=== PATIENT | female | born 1950 | race Caucasian/White ===

== ENCOUNTER 2020-09-23 10:15 | Emergency (ER) | payer MEDICARE, OTHER ==
[2020-09-23 10:27] VITALS: TEMP 99
[2020-09-23] MEDS ORDERED: SODIUM CHLORIDE 0.9% 1,000 ML IV STA (10:54)
[2020-09-23] MEDS ORDERED: IPRATROPIUM-ALBUTEROL 3 ML NEB INHALATION STA ×2 (10:55)
[2020-09-23] MEDS ORDERED: LORazepam 2 MG/ML INJ IV STA (10:55)
[2020-09-23] MEDS ORDERED: methylPREDNISolone SOD SUCCI 125 MG/2 ML VIAL IV STA (10:56)
[2020-09-23 11:17] LABS: Basophils # (A) 0.1 k/uL (0-0.2); Basophils % (A) 1 %; Eosinophils # (A) 0.1 k/uL (0-0.7); Eosinophils % (A) 1 %; HCT 28.2 % (34.0-46.0); HGB 8.6 gm/dL (11.4-16.0); Hypochromasia Moderate; Lymphocytes % (A) 8 %; MCH 28.5 pg (25.0-35.0); MCHC 30.6 g/dL (31.0-37.0); MCV 93.3 fL (80.0-100.0); Monocytes # (A) 0.5 k/uL (0-1.0); Monocytes % (A) 4 %; Neutrophils # (A) 10.7 k/uL (1.3-7.7); Neutrophils % (A) 86 %; Platelet Count 480 k/uL (150-450); RBC 3.02 m/uL (3.80-5.40); RDW 15.1 % (11.5-15.5); WBC 12.5 k/uL (3.8-10.6)
[2020-09-23 11:27] LABS: Potassium 3.6 mmol/L (3.5-5.1); Total Bilirubin 0.3 mg/dL (0.2-1.3); Total Protein 6.3 g/dL (6.3-8.2)
[2020-09-23 11:37] LABS: INR 1.3 (<1.2); Partial Thromboplastin Time 26.6 sec (22.0-30.0); Prothrombin Time 13.3 sec (9.0-12.0)
--- NOTE | 2020-09-23 11:38 | XR ---
EXAMINATION TYPE: XR chest 2V DATE OF EXAM: 09/23/2020 COMPARISON: NONE HISTORY: Shortness of breath TECHNIQUE: Frontal and lateral views of the chest are obtained. FINDINGS: Scattered senescent parenchymal changes noted. Hyperinflation compatible with COPD. Coarse interstitial infiltrates throughout both lung [place]. Correlate for Covid 19 pneumonia. Heart size is stable. Mediastinal structures are stable and grossly unremarkable. No evidence for hilar prominence. Degenerative changes dorsal spine. IMPRESSION: 1. Coarse interstitial infiltrates throughout both lung [place]. Correlate for Covid 19 pneumonia.
[2020-09-23 11:40] LABS: Calcium 5.5 mg/dL (8.4-10.2)
--- NOTE | 2020-09-23 11:40 | ED ---
General Adult HPI - General Chief complaint: Shortness of Breath Stated complaint: SOB Time Seen by Provider: 09/23/20 10:48 Source: patient, EMS Mode of arrival: EMS Limitations: physical limitation - History of Present Illness Initial comments: 70-year-old female with history of A. 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 Patient was brought to the ED via EMS from [facility]. Per EMS report, the patient was supposedly going to hospice today but she decided that she wants to be evaluated because she does not feel good. At the facility, the patient was supposedly quite anxious and tachypneic. Patient reports feeling short of breath but states this is her baseline normally. She denies any chest pain. She reports feeling weaker over the last several days with decreased appetite. She denies any fevers or chills. - Related Data Home Medications Medication Instructions Recorded Confirmed Albuterol Sulfate [Ventolin HFA] 2 puff INHALATION RT-Q6H 09/23/20 09/23/20 Apixaban [Eliquis] 2.5 mg PO BID 09/23/20 09/23/20 Atorvastatin [Lipitor] 40 mg PO HS 09/23/20 09/23/20 Carvedilol [Coreg] 12.5 mg PO BID 09/23/20 09/23/20 Cholecalciferol [Vitamin D3 (25 50 mcg PO DAILY@0800 09/23/20 09/23/20 Mcg = 1000 Iu)] Ferrous Sulfate [Feosol] 325 mg PO HS 09/23/20 09/23/20 Fluticasone/Umeclidin/Vilanter 1 puff INHALATION RT-DAILY 09/23/20 09/23/20 [Ellen Marcelo 100-62.5-25] Magic Cup 1 dose PO W/LUNCH@1100 09/23/20 09/23/20 Magnesium Oxide 400 mg PO TID@0500,1300,2100 09/23/20 09/23/20 Multivitamins, Thera [Multivitamin 1 tab PO DAILY 09/23/20 09/23/20 (formulary)] Omeprazole 20 mg PO DAILY@0500 09/23/20 09/23/20 Sertraline [Zoloft] 50 mg PO DAILY 09/23/20 09/23/20 Sodium Bicarbonate Tab 650 mg PO BID 09/23/20 09/23/20 Zinc Oxide [Cozima] 113 gm TP Q1H PRN 09/23/20 09/23/20 traMADol HCl [Ultram] 25 mg PO Q6H PRN 09/23/20 09/23/20 Allergies Allergy/AdvReac Type Severity Reaction Status Date / Time erythromycin base Allergy Dyspnea Verified 09/23/20 10:54 Review of Systems ROS Statement: Those systems with pertinent positive or pertinent negative responses have been documented in the HPI. ROS Other: All systems not noted in ROS Statement are negative. Past Medical History Past Medical History: Atrial Fibrillation, COPD, Renal Disease History of Any Multi-Drug Resistant Organisms: None Reported Past Surgical History: Hysterectomy Past Psychological History: Anxiety Smoking Status: Never smoker Past Alcohol Use History: None Reported Past Drug Use History: None Reported General Exam Limitations: physical limitation General appearance: alert, in no apparent distress Head exam: Present: atraumatic, normocephalic, normal inspection Eye exam: Present: normal appearance, PERRL Pupils: Present: normal accommodation ENT exam: Present: normal exam, normal oropharynx, mucous membranes dry (Moderate to severe dry) Neck exam: Present: normal inspection, full ROM. Absent: tenderness Respiratory exam: Present: respiratory distress (Tachypnea), prolonged expiratory Cardiovascular Exam: Present: regular rate, normal rhythm, normal heart sounds. Absent: systolic murmur GI/Abdominal exam: Present: soft. Absent: distended, tenderness, guarding Extremities exam: Present: normal inspection, full ROM, normal capillary refill, other (Palpable DP and PT bilaterally). Absent: tenderness, calf tenderness Back exam: Present: normal inspection, full ROM. Absent: tenderness Neurological exam: Present: alert, oriented X3 Psychiatric exam: Present: normal affect, normal mood Skin exam: Present: warm, dry, intact, normal color Course Vital Signs 09/23/20 09/23/20 09/23/20 10:18 11:05 11:17 Temperature 99 F Pulse Rate 125 H 121 H 126 H Respiratory 30 H Rate Blood Pressure 126/97 O2 Sat by Pulse 97 Oximetry 09/23/20 09/23/20 12:24 13:22 Temperature Pulse Rate 108 H 93 Respiratory 30 H 22 Rate Blood Pressure 140/69 150/69 O2 Sat by Pulse 98 97 Oximetry EKG Findings - EKG Comments: EKG Findings:: Sinus tachycardia. Ventricular rate 124, MD 146, QRS 70, QTC 482. Medical Decision Making - Medical Decision Making 70-year-old female with history of A. 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 On physical examination, patient was initially tachypneic But an oxygen saturation of 97 on 4 L. X-ray revealed interstitial infiltrates. She was also hypocalcemic and hypomagnesemic. Patient was given calcium gluconate and magnesium sulfate. She also has poor renal function although this appears to be her baseline. Patient is currently on hospice. I spoke with initially who suggested I contact . I spoke to him, and he suggested the patient can be discharged as long as she is comfortable with going home. Will provide comfort care at the facility. I discussed this information thoroughly with the patient, she does not want to stay in the hospital. She will be discharged back to [place]. Case discussed with - Lab Data Result diagrams: 09/23/20 10:59 09/23/20 10:59 Lab Results 09/23/20 09/23/20 09/23/20 Range/Units 10:59 10:59 10:59 WBC 12.5 H (3.8-10.6) k/uL RBC 3.02 L (3.80-5.40) m/uL Hgb 8.6 L (11.4-16.0) gm/dL Hct 28.2 L (34.0-46.0) % MCV 93.3 (80.0-100.0) fL MCH 28.5 (25.0-35.0) pg MCHC 30.6 L (31.0-37.0) g/dL RDW 15.1 (11.5-15.5) % Plt Count 480 H (150-450) k/uL MPV 8.0 Neutrophils % 86 % Lymphocytes % 8 % Monocytes % 4 % Eosinophils % 1 % Basophils % 1 % Neutrophils # 10.7 H (1.3-7.7) k/uL Lymphocytes # 1.0 (1.0-4.8) k/uL Monocytes # 0.5 (0-1.0) k/uL Eosinophils # 0.1 (0-0.7) k/uL Basophils # 0.1 (0-0.2) k/uL Hypochromasia Moderate PT 13.3 H (9.0-12.0) sec INR 1.3 H (<1.2) APTT 26.6 (22.0-30.0) sec Sodium 145 (137-145) mmol/L Potassium 3.6 (3.5-5.1) mmol/L Chloride 111 H (98-107) mmol/L Carbon Dioxide 15 L (22-30) mmol/L Anion Gap 19 mmol/L BUN 32 H (7-17) mg/dL Creatinine 2.27 H (0.52-1.04) mg/dL Est GFR (CKD-EPI)AfAm 24 (>60 ml/min/1.73 sqM) Est GFR (CKD-EPI)NonAf 21 (>60 ml/min/1.73 sqM) Glucose 236 H (74-99) mg/dL Calcium 5.5 L* (8.4-10.2) mg/dL Magnesium (1.6-2.3) mg/dL Total Bilirubin 0.3 (0.2-1.3) mg/dL AST 32 (14-36) U/L ALT 17 (4-34) U/L Alkaline Phosphatase 68 (38-126) U/L Troponin I (0.000-0.034) ng/mL Total Protein 6.3 (6.3-8.2) g/dL Albumin 3.0 L (3.5-5.0) g/dL Coronavirus (PCR) (Not Detectd) 09/23/20 09/23/20 09/23/20 Range/Units 10:59 10:59 11:42 WBC (3.8-10.6) k/uL RBC (3.80-5.40) m/uL Hgb (11.4-16.0) gm/dL Hct (34.0-46.0) % MCV (80.0-100.0) fL MCH (25.0-35.0) pg MCHC (31.0-37.0) g/dL RDW (11.5-15.5) % Plt Count (150-450) k/uL MPV Neutrophils % % Lymphocytes % % Monocytes % % Eosinophils % % Basophils % % Neutrophils # (1.3-7.7) k/uL Lymphocytes # (1.0-4.8) k/uL Monocytes # (0-1.0) k/uL Eosinophils # (0-0.7) k/uL Basophils # (0-0.2) k/uL Hypochromasia PT (9.0-12.0) sec INR (<1.2) APTT (22.0-30.0) sec Sodium (137-145) mmol/L Potassium (3.5-5.1) mmol/L Chloride (98-107) mmol/L Carbon Dioxide (22-30) mmol/L Anion Gap mmol/L BUN (7-17) mg/dL Creatinine (0.52-1.04) mg/dL Est GFR (CKD-EPI)AfAm (>60 ml/min/1.73 sqM) Est GFR (CKD-EPI)NonAf (>60 ml/min/1.73 sqM) Glucose (74-99) mg/dL Calcium (8.4-10.2) mg/dL Magnesium <0.4 L* (1.6-2.3) mg/dL Total Bilirubin (0.2-1.3) mg/dL AST (14-36) U/L ALT (4-34) U/L Alkaline Phosphatase (38-126) U/L Troponin I 0.022 (0.000-0.034) ng/mL Total Protein (6.3-8.2) g/dL Albumin (3.5-5.0) g/dL Coronavirus (PCR) Not Detected (Not Detectd) Disposition Clinical Impression: Shortness of breath, Hypocalcemia, Hypomagnesemia, Pneumonia Disposition: HOME SELF-CARE Condition: Stable Instructions (If sedation given, give patient instructions): COPD (Chronic Obstructive Pulmonary Disease) (DC) Additional Instructions: Please return to the Emergency Department if symptoms worsen or any other concerns. Is patient prescribed a controlled substance at d/c from ED?: No Referrals: Pawan Brooks DO [Primary Care Provider] - 1-2 days Time of Disposition: 12:16
[2020-09-23] MEDS ORDERED: CALCIUM GLUCONATE 2 GM in SODIUM CHLORIDE 0.9% 100 ML IVPB ONE (11:52)
[2020-09-23] MEDS: MAGNESIUM SULFATE-D5W PMX 1 GM in DEXTROSE/WATER 1 100ML.BAG IVPB SCH ×2 (12:15→13:21)
[2020-09-23 13:25] VITALS: BP 150/69; PULSE 93; RESP 22
== END 2020-09-23 15:58 | disposition home or self-care (01) ==
LOC: EC 10:15
DX: J18.9 Pneumonia, unspecified organism (principal); E83.42 Hypomagnesemia; E83.51 Hypocalcemia; F41.9 Anxiety disorder, unspecified; I48.91 Unspecified atrial fibrillation; J44.0 Chronic obstructive pulmonary disease with (acute) lower respiratory infection; Z79.01 Long term (current) use of anticoagulants; Z79.899 Other long term (current) drug therapy; Z88.1 Allergy status to other antibiotic agents; Z99.81 Dependence on supplemental oxygen
CPT/HCPCS: 36415; 94640; 93005; 80053; 83735; 84484; 85025; 85610; 85730; 87635; 71046; 99285; 96365; 96366 ×4; 96375 ×2; 96367; 96361; J2060; J2930; J3475; J0610